=== PATIENT | female | born 1935 | race Caucasian/White ===

== ENCOUNTER 2019-08-09 15:36 | Inpatient (IN) | payer MEDICARE, BC ==
[~2019-08-09] VITALS: Ht 157.5 cm; Wt 59.9 kg
[2019-08-09] MEDS ORDERED: VENL150C58 PO (15:56)
[2019-08-09] MEDS ORDERED: OLAN5TAB3 PO (15:56)
[2019-08-09] MEDS ORDERED: ROSU5TAB13 PO (15:56)
[2019-08-09] MEDS ORDERED: MIRT15TA7 PO (15:56)
[2019-08-09] MEDS ORDERED: TEMA15CA PO (15:56)
[2019-08-09 16:00] VITALS: BP 147/93
[2019-08-09] MEDS ORDERED: LORAZEPAM 0.5 MG TABLET PO PRN (17:00)
[2019-08-09] MEDS ORDERED: MAGNESIUM HYDROXIDE 30 ML UDC PO PRN (17:00)
[2019-08-09] MEDS ORDERED: ACETAMINOPHEN 325 MG TABLET PO PRN (17:00)
[2019-08-09] MEDS ORDERED: MAG HYDROX/AL HYDROX/SIMETH 30 ML UDC PO PRN (17:00)
[2019-08-09] MEDS ORDERED: BLOOD SUGAR DIAGNOSTIC 1 EACH STRIP IN ONE (17:00)
--- NOTE | 2019-08-09 18:14 | NUR ---
GPS/RN-NOTES ADMITTED 83 YEARS OLD FEMALE PATIENT FROM [facility] ER. PATIENT ON VOLUNTARY. UPON FACE TO FACE ASSESSMENT, PATIENT A/O X4 AMBULATORY STEADY GAIT. PATIENT DENIES SI/HI AT THIS TIME. PATIENT STATED" I HAVE PANIC DISORDER,ANXIETY ATTACK ". PATIENT SIGNS ALL ADMISSION PAPERS, CONTRABAND AND FULL BODY ASSESSMENT DONE. PATIENT'S RIGHT BOOKLET WAS GIVEN TO THE PATIENT. PATIENT WAS ORIENTED IN THE UNIT AND UNIT POLICIES. PATIENT SON LALI COLLAZO MADE AWARE OF THE ADMISSION. DR. HURLEY MADE AWARE WITH ORDERS. ALSO COLLECTION ANALYST OCHOA FLANNERY SEEN THE PATIENT AND RECONCILED PT'S MEDICATIONS. PATIENT OWN CELLPHONE INCLUDING EXTERMINATION SUPERVISOR WAS KEPT IN THE NURSE STATION PER PATIENT'S REQUEST,CHARGE NURSE JUAN ANTONIO AWARE AND AGREED. WILL ENDORSE TO INCOMING SHIFT FOR CONTINUITY OF CARE.
[2019-08-09 20:00] VITALS: BP 149/86
[2019-08-09 21:05] VITALS: BP 149/86
[2019-08-09] MEDS: ATORVASTATIN 10 MG TABLET PO SCH (21:29)
[2019-08-09] MEDS: TEMAZEPAM 7.5 MG CAPSULE PO PRN (21:50)
--- NOTE | 2019-08-09 21:50 | NUR ---
GPS RN notes Pt is complaining of having problem with sleeping and requesting sleeping meds. Administered restoril 7.5 mg/po as ordered for sleeping. Safety precautions is maintained. Will continue to monitor.
--- NOTE | 2019-08-10 01:57 | NUR ---
GPS RN notes Pt is complaining of pain on R and L legs and requesting pain meds. Administered tylenol 325mg/2 tabs/po as ordered for pain. Safety precautions is maintained. Will continue to monitor.
--- NOTE | 2019-08-10 05:20 | NUR ---
GPS RN notes: Pt keep asking about her psych meds. Explained to Pt several times that MD will evaluate today. Pt repeatedly asked the same questions over and over again. Pt easily forgetful. Reality orientation provided. Noted in this conversation with Pt that she asked for the same psych meds including the ativan , however she also believes that it is not helping her much. nurse assigned and charge nurse offered her ativan, but patient refused to take the said medication. nurse assigned spent considerable amount to time explaining these matter to her but patient goes back to the topic again and again. Will continue to monitor this behavior.
[2019-08-10 06:47] LABS: ALBUMIN 3.5 g/dL (3.4-5.0); BILIRUBIN,TOTAL 0.8 mg/dL (0.2-1.0); CALCIUM, SERUM 8.6 mg/dL (8.5-10.1); POTASSIUM 3.9 mmol/L (3.5-5.1); TOTAL PROTEIN, SERUM 6.3 g/dL (6.4-8.2)
[2019-08-10 08:00] VITALS: BP 143/83
[2019-08-10 16:00] VITALS: BP 132/65
[2019-08-10] MEDS: VENLAFAXINE XR 150 MG CAP.SR.24H PO SCH (16:43)
[2019-08-10 20:00] VITALS: BP 112/73
[2019-08-10 20:37] VITALS: BP 112/73
[2019-08-10] MEDS: ATORVASTATIN 10 MG TABLET PO SCH (21:57)
[2019-08-10] MEDS: MIRTAZAPINE 15 MG TABLET PO SCH (21:57)
[2019-08-10] MEDS: OLANZAPINE 2.5 MG TABLET PO SCH (21:57)
[2019-08-10] MEDS: TEMAZEPAM 7.5 MG CAPSULE PO PRN (22:03)
--- NOTE | 2019-08-10 22:03 | NUR ---
GPS RN NOTES C/O INSOMNIA,MEDICATED WITH RESTORIL 7.5MG PO ORDERED.WILL MONITOR HOUR OF SLEEP.
[2019-08-11 08:00] VITALS: BP 132/92
[2019-08-11] MEDS: VENLAFAXINE XR 150 MG CAP.SR.24H PO SCH (08:05)
[2019-08-11 15:59] VITALS: BP 134/84
[2019-08-11 19:43] VITALS: BP 140/79
[2019-08-11 20:00] VITALS: BP 140/79
--- NOTE | 2019-08-11 21:35 | NUR ---
GPS RN NOTE: PATIENT REFUSED SKIN ASSESSMENT, STATED," MY SKIN IS GOOD, YOU DON'T HAVE TO CHECK, YOU CAN TRUST ME & IF I DON'T SLEEP NOW, I WON'T BE ABLE TO SLEEP."
[2019-08-11] MEDS: ATORVASTATIN 10 MG TABLET PO SCH (21:45)
[2019-08-11] MEDS: MIRTAZAPINE 15 MG TABLET PO SCH (21:45)
[2019-08-11] MEDS: OLANZAPINE 2.5 MG TABLET PO SCH (21:45)
[2019-08-11] MEDS: TEMAZEPAM 7.5 MG CAPSULE PO PRN (22:24)
--- NOTE | 2019-08-11 22:26 | NUR ---
GPS RN NOTE: INSOMNIA PATIENT STATED SHE IS UNABLE TO SLEEP & WANTED TO TAKE HER RESTORIL RIGHT NOW, EXPLAINED HER TO SPACE OUT HER 2200 MEDS BUT PATIENT KEPT INSISTING TO TAKE IT RIGHT NOW & STARTED GETTING RESTLESS/ANXIOUS. VITALS ARE STABLE, NO ACUTE CHANGES NOTED. PRN RESTORIL 7.5 MG 1 CAP PO GIVEN ORDERED. WILL CONTINUE TO MONITOR.
[2019-08-12] MEDS: clonazePAM 0.5 MG TABLET PO PRN (03:56)
--- NOTE | 2019-08-12 03:56 | NUR ---
GPS RN NOTE: ANXIETY/RESTLESSNESS PATIENT NOTED TO BE VERY ANXIOUS, RESTLESS, KEEP SAYING, HONEY I AM MESS, MY LIFE IS A MESS." PRN KLONOPIN 0.5 MG PO GIVEN ORDERED. WILL CONTINUE TO MONITOR THE PATIENT CLOSELY FOR ANY CHANGES.
--- NOTE | 2019-08-12 06:26 | NUR ---
GPS RN NOTE PATIENT IS SLEEPING COMFORTABLY AT THIS TIME. WILL CONTINUE TO MONITOR.
[2019-08-12 08:00] VITALS: BP 150/91
[2019-08-12] MEDS: VENLAFAXINE XR 150 MG CAP.SR.24H PO SCH (09:12)
--- NOTE | 2019-08-12 13:30 | NUR ---
Initial Discharge Plan: Pt currently resides at her home located at [address] [place] [address], [address], [place] [address]; ([phone]). Per pt, she would like to return to her home. JACKLYN will work with the pt and the MD regarding appropriate discharge planning. SW will form a safe and proper plan.
[2019-08-12 16:00] VITALS: BP 126/76
--- NOTE | 2019-08-12 16:15 | NUR ---
Group Note: SW encouraged the pt to participate in group therapy on 08/12/19, however, pt is not appropriate at this time. Pt is easily agitated, paranoid and anxious. Pt stated that she wanted to return to her home and leave the hospital now as she is a voluntary pt. SW informed her that she came to the unit since she needed help and therefore she should not be discharged this soon. SW stated that she has a right but nothing has changed before she was admitted. Pt stated that made sense and that will try to stay longer.
[2019-08-12 20:17] VITALS: BP 136/76
[2019-08-12] MEDS: OLANZAPINE 2.5 MG TABLET PO SCH (21:21)
[2019-08-12] MEDS: MIRTAZAPINE 15 MG TABLET PO SCH (21:21)
[2019-08-12] MEDS: ATORVASTATIN 10 MG TABLET PO SCH (21:21)
[2019-08-12] MEDS: TEMAZEPAM 7.5 MG CAPSULE PO PRN (23:08)
--- NOTE | 2019-08-12 23:10 | NUR ---
GPS RN NOTES: INSOMNIA PT REQUESTED SLEEPING MEDS. OFFERED RESTORIL 7.5 MG PO PRN ORDERED. PT AGREED AND TOLERATED MEDS WELL. CONTINUE TO MONITOR
[2019-08-13 08:00] VITALS: BP 128/85
[2019-08-13] MEDS: VENLAFAXINE XR 150 MG CAP.SR.24H PO SCH (08:31)
[2019-08-13 16:00] VITALS: BP 127/74
--- NOTE | 2019-08-13 19:43 | NUR ---
MS RN NOTES PATIENT AWAKE, WALKING HALLWAYS. ALERT AND ORIENTED X 3. SHOWS NO SIGNS OF ACUTE DISTRESS. ANXIOUS, NEEDY, AND CONFUSED AT TIMES. PATIENT IS AMBULATORY AND STABLE. BED IN LOWEST POSITION, LOCKED, AND SAFETY PRECAUTIONS IN PLACE. WILL CONTINUE TO MONITOR.
[2019-08-13 20:54] VITALS: BP 128/85
[2019-08-13] MEDS: MIRTAZAPINE 15 MG TABLET PO SCH (21:27)
[2019-08-13] MEDS: OLANZAPINE 2.5 MG TABLET PO SCH (21:27)
[2019-08-13] MEDS: ATORVASTATIN 10 MG TABLET PO SCH (21:27)
[2019-08-13] MEDS: TEMAZEPAM 7.5 MG CAPSULE PO PRN (22:37)
--- NOTE | 2019-08-13 23:08 | NUR ---
REMBERTO NOTES PATIENT REQUESTED SLEEPING MEDICATIONS. GIVEN PRN RESTORIL AT 2337 Addendum: 08/13/19 at 2309 by EMILE ROSALES RN WRONG TIMES
--- NOTE | 2019-08-13 23:09 | NUR ---
RN NOTES PATIENT REQUESTED SLEEPING MEDICATIONS. GIVEN PRN RESTORIL AT 1603
[2019-08-14 08:00] VITALS: BP 161/87
[2019-08-14] MEDS: VENLAFAXINE XR 150 MG CAP.SR.24H PO SCH (08:58)
--- NOTE | 2019-08-14 11:26 | NUR ---
RN-CO: NOTIFIED DR NAVARRO REGARDING FOUL SMELLING URINE OF THE PATIENT. AWAITING FOR ORDERS.
[2019-08-14] MEDS: VENLAFAXINE XR 75 MG CAP.SR.24H PO SCH (12:19)
[2019-08-14] MEDS: POLYETHYLENE GLYCOL 3350 17 GM POWD.PACK PO SCH ×2 (12:19→22:13)
--- NOTE | 2019-08-14 14:22 | NUR ---
Group Note: SW encouraged the pt to participate in group therapy on 08/14/19, however, pt is not appropriate at this time. Pt is easily agitated, paranoid and anxious. Pt stated that she wanted to return to her home and leave the hospital now as she is a voluntary pt. SW informed her that she came to the unit since she needed help and therefore she should not be discharged this soon. SW stated that she has a right but nothing has changed before she was admitted. Pt stated that made sense and that will try to stay longer.
[2019-08-14 16:00] VITALS: BP 102/83
[2019-08-14 20:07] VITALS: BP 133/70
[2019-08-14] MEDS: ATORVASTATIN 10 MG TABLET PO SCH (22:13)
[2019-08-14] MEDS: OLANZAPINE 2.5 MG TABLET PO SCH (22:13)
[2019-08-14] MEDS: MIRTAZAPINE 15 MG TABLET PO SCH (22:13)
[2019-08-14] MEDS: TEMAZEPAM 7.5 MG CAPSULE PO PRN (23:25)
--- NOTE | 2019-08-14 23:25 | NUR ---
GPS RN NOTE: INSOMNIA PT. C/O UNABLE TO SLEEP. ADMINISTERED RESTORIL 7.5 MG PO PRN ORDERED. WILL CONTINUE TO MONITOR FOR SAFETY AND BEHAVIOR
[2019-08-15 08:00] VITALS: BP 139/86
[2019-08-15] MEDS: VENLAFAXINE XR 150 MG CAP.SR.24H PO SCH (08:34)
[2019-08-15] MEDS: VENLAFAXINE XR 75 MG CAP.SR.24H PO SCH (12:42)
--- NOTE | 2019-08-15 14:11 | NUR ---
Group Note: SW encouraged the pt to participate in group therapy on 08/15/19, however, pt is not appropriate at this time. Pt is easily agitated, paranoid and anxious. Pt stated that she wanted to return to her home and leave the hospital now as she is a voluntary pt. SW informed her that she came to the unit since she needed help and therefore she should not be discharged this soon. SW stated that she has a right but nothing has changed before she was admitted. Pt stated that made sense and that will try to stay longer.
[2019-08-15 16:00] VITALS: BP 138/92
[2019-08-15] MEDS ORDERED: busPIRone 5 MG TABLET PO SCH (17:00)
[2019-08-15] MEDS: busPIRone 5 MG TABLET PO SCH (18:00)
[2019-08-15 20:00] VITALS: BP 118/71
[2019-08-15 20:51] VITALS: BP 118/71
[2019-08-15] MEDS: ATORVASTATIN 10 MG TABLET PO SCH (22:04)
[2019-08-15] MEDS: POLYETHYLENE GLYCOL 3350 17 GM POWD.PACK PO SCH (22:04)
[2019-08-15] MEDS: MIRTAZAPINE 15 MG TABLET PO SCH (22:04)
[2019-08-15] MEDS: OLANZAPINE 2.5 MG TABLET PO SCH (22:05)
[2019-08-15] MEDS: TEMAZEPAM 7.5 MG CAPSULE PO PRN (23:04)
--- NOTE | 2019-08-15 23:05 | NUR ---
rn gps notes patient requested for restoril to help for sleeping, prn given will continue to monitor.
[2019-08-16 06:07] VITALS: BP 118/71
[2019-08-16 08:00] VITALS: BP 143/76
[2019-08-16] MEDS: busPIRone 5 MG TABLET PO SCH ×2 (09:01→16:53)
[2019-08-16] MEDS: VENLAFAXINE XR 75 MG CAP.SR.24H PO SCH ×2 (09:01→16:53)
[2019-08-16 16:00] VITALS: BP 133/76
[2019-08-16 20:00] VITALS: BP 131/75
[2019-08-16] MEDS: ATORVASTATIN 10 MG TABLET PO SCH (21:49)
[2019-08-16] MEDS: OLANZAPINE 2.5 MG TABLET PO SCH (21:50)
[2019-08-16] MEDS: MIRTAZAPINE 15 MG TABLET PO SCH (21:50)
[2019-08-16] MEDS: POLYETHYLENE GLYCOL 3350 17 GM POWD.PACK PO SCH (22:00)
--- NOTE | 2019-08-16 22:01 | NUR ---
GPS RN NOTE: PT REFUSED 2199 FARNAZ, STATES "I JUST HAD A BM, I DON'T NEED IT". WILL CONTINUE TO MONITOR.
[2019-08-16] MEDS: TEMAZEPAM 7.5 MG CAPSULE PO PRN (22:35)
--- NOTE | 2019-08-17 06:40 | NUR ---
GPS RN CLOSING NOTE: PT LAYING IN BED SLEEPING. RESPIRATION EVEN AND UNLABORED WITH EQUAL RISE AND FALL OF THE CHEST ON ROOM AIR. NO S/S OF ANY DISTRESS AT THIS TIME. ENDORSING TO AM SHIFT.
[2019-08-17 08:00] VITALS: BP 145/76
[2019-08-17] MEDS: busPIRone 5 MG TABLET PO SCH ×2 (08:34→16:37)
[2019-08-17] MEDS: VENLAFAXINE XR 75 MG CAP.SR.24H PO SCH ×2 (08:34→16:37)
--- NOTE | 2019-08-17 14:15 | NUR ---
GPS/RN-NOTES PATIENT AWAKE,ALERT LAYING IN BED WITH EPISODE OF PACING VERBALIZING ANXIETY. OFFERED PRN ANXIETY MEDICATIONS BUT PATIENT STRONGLY REFUSED. STATED" I'M FINE I NEED TO TAKE SOME WALKING".PATIENT WAS REEDUCATED WITH SAFETY PRECAUTIONS. PATIENT VERBALIZED UNDERSTANDING. ALL NEEDS ATTENDED AND ANTICIPATED. WILL CONT. MONITORING FOR SAFETY AND BEHAVIOR.
[2019-08-17 16:00] VITALS: BP 110/77
[2019-08-17 20:00] VITALS: BP 129/70
[2019-08-17 20:27] VITALS: BP 141/80
[2019-08-17] MEDS: POLYETHYLENE GLYCOL 3350 17 GM POWD.PACK PO SCH (22:00)
[2019-08-17] MEDS: ATORVASTATIN 10 MG TABLET PO SCH (22:01)
[2019-08-17] MEDS: OLANZAPINE 2.5 MG TABLET PO SCH (22:01)
[2019-08-17] MEDS: MIRTAZAPINE 15 MG TABLET PO SCH (22:01)
--- NOTE | 2019-08-17 22:03 | NUR ---
GPS RN NOTE: REFUSED MIRALAX PATIENT REFUSED TO TAKE MIRALAX, STATED," I HAD BM TODAY & I DON'T NEED THIS MEDICINE.". OFFERED X 3 BUT CONTINUED TO REFUSE.
[2019-08-17] MEDS: TEMAZEPAM 7.5 MG CAPSULE PO PRN (23:22)
--- NOTE | 2019-08-17 23:23 | NUR ---
GPS RN NOTE: INSOMNIA PATIENT VERBALIZED THAT SHE IS UNABLE TO SLEEP & REQUESTED TO TAKE SLEEPING MEDICINE. PRN RESTORIL 7.5 MG 1 CAP PO GIVEN ORDERED. WILL CONTINUE TO MONITOR FOR EFFECTIVENESS.
[2019-08-18 06:38] LABS: BASOPHILS % (AUTO) 0.5 % (0.0-2.0); EOSINOPHILS % (AUTO) 2.5 % (0.0-6.0); HEMATOCRIT 36 % (33-45); LYMPHOCYTES # (AUTO) 1.2 /CMM (0.8-4.8); LYMPHOCYTES % (AUTO) 24.9 % (20.0-44.0); MEAN CORPUSCULAR HGB CONC 33 g/dl (31.0-36.0); MEAN CORPUSCULAR VOLUME 89 fL (82-100); MONOCYTES # (AUTO) 0.5 /CMM (0.1-1.30); MONOCYTES % (AUTO) 9.2 % (2.0-12.0); NEUTROPHILS # (AUTO) 3.1 /CMM (1.8-8.9); NEUTROPHILS % (AUTO) 62.9 % (43.0-81.0); PLATELET COUNT (AUTO) 158 /CMM (150-450); RED BLOOD CELL COUNT(AUTO) 4.03 MIL/uL (4.0-5.2)
[2019-08-18 06:56] LABS: CALCIUM, SERUM 8.8 mg/dL (8.5-10.1); MAGNESIUM 2.4 mg/dL (1.8-2.4); PHOSPHORUS 4.1 mg/dL (2.5-4.9)
[2019-08-18 08:00] VITALS: BP 132/82
[2019-08-18] MEDS: VENLAFAXINE XR 75 MG CAP.SR.24H PO SCH ×2 (08:17→16:51)
[2019-08-18] MEDS: busPIRone 5 MG TABLET PO SCH ×3 (08:17→16:52)
--- NOTE | 2019-08-18 09:00 | NUR ---
RN NOTE- PARANOID HYPERVERBAL REPEATING QUESTIONS REGARDING CARE BLOOD WORK TREATMENT AND DC. MED COMPLIANT, NEEDS ATTENDED DENYING [facility].
[2019-08-18] MEDS: clonazePAM 0.5 MG TABLET PO PRN (14:41)
--- NOTE | 2019-08-18 14:41 | NUR ---
RN NOTE- ANXIETY INCREASING. KLONOPIN 0.5 MG GIVEN
[2019-08-18 16:00] VITALS: BP 130/67
[2019-08-18] MEDS: POLYETHYLENE GLYCOL 3350 17 GM POWD.PACK PO SCH (21:12)
[2019-08-18 21:18] VITALS: BP 133/81
[2019-08-18] MEDS: ATORVASTATIN 10 MG TABLET PO SCH (22:03)
[2019-08-18] MEDS: MIRTAZAPINE 15 MG TABLET PO SCH (22:03)
[2019-08-18] MEDS: OLANZAPINE 2.5 MG TABLET PO SCH (22:03)
[2019-08-18] MEDS: TEMAZEPAM 7.5 MG CAPSULE PO PRN (23:16)
--- NOTE | 2019-08-18 23:19 | NUR ---
GPS RN NOTES: INSOMNIA PT REQUESTED SLEEPING MEDS. OFFERED RESTORIL 7.5 MG PO PRN ORDERED. PT AGREED AND TOLERATED MEDS WELL. CONTINUE TO MONITOR
[2019-08-19 08:00] VITALS: BP 153/84
[2019-08-19] MEDS: VENLAFAXINE XR 75 MG CAP.SR.24H PO SCH ×2 (08:15→17:21)
[2019-08-19] MEDS: busPIRone 5 MG TABLET PO SCH ×3 (08:15→17:21)
--- NOTE | 2019-08-19 10:00 | NUR ---
INDIVIDUAL INTERVENTION: JACKLYN spoke with pt regarding her discharge on Monday08/21/19. Pt became extremely anxious stating that she was not ready to be discharged home and that she continues to feel "fuzzy" from the head. JACKLYN explained that MD has given a discharge order as she no longer meets criteria for acute inpatient hospitalization and can follow up with outside mental health services. JACKLYN informed pt that this freelance copywriter will be following up with pts friend Milagros to coordinate her discharge, pt agreed.
--- NOTE | 2019-08-19 10:23 | NUR ---
FRIEND CONTACT: JACKLYN contacted pts friend Trinity Shea ([phone]) to coordinate pts discharge. Friend states that she will have a caregiver in place for pt by Monday08/21/19. She states a tractor trailer moving van driver will be coming on that day at 12:00pm to pick pt up and transport home.
[2019-08-19 16:00] VITALS: BP 143/93
[2019-08-19 20:13] VITALS: BP 146/88
[2019-08-19] MEDS: POLYETHYLENE GLYCOL 3350 17 GM POWD.PACK PO SCH (22:00)
[2019-08-19] MEDS: OLANZAPINE 2.5 MG TABLET PO SCH (22:01)
[2019-08-19] MEDS: ATORVASTATIN 10 MG TABLET PO SCH (22:01)
[2019-08-19] MEDS: MIRTAZAPINE 15 MG TABLET PO SCH (22:02)
[2019-08-19 22:42] VITALS: BP 143/95
[2019-08-19] MEDS: TEMAZEPAM 7.5 MG CAPSULE PO PRN (23:03)
--- NOTE | 2019-08-19 23:06 | NUR ---
GPS RN NOTES: INSOMNIA PT REQUESTED SLEEPING MEDS. VITALS CHECKED WNL. NO SOB.NO ROSEANN DISTRESS. OFFERED RESTORIL 7.5 MG PO PRN ORDERED. PT AGREED AND TOLERATED MEDS WELL. CONTINUE TO MONITOR
[2019-08-20 08:00] VITALS: BP 142/72
[2019-08-20] MEDS: busPIRone 5 MG TABLET PO SCH ×3 (08:46→16:27)
[2019-08-20] MEDS: VENLAFAXINE XR 75 MG CAP.SR.24H PO SCH ×2 (08:46→16:27)
--- NOTE | 2019-08-20 12:54 | NUR ---
PSYCH ELLI: JACKLYN contacted psychiatrist Dr. Palmer Rodriguez Address: [address] [place] [address] [address], [place] [address] to schedule a followup appointment for pt. Pts follow up telehealth appointment will be on 08/28/19 at 0930. JACKLYN faxed clinicals to .
--- NOTE | 2019-08-20 14:19 | NUR ---
INDIVIDUAL INTERVENTION: SW encouraged pt to attend group therapy on this present day. Pt stated she is to anxious and her head is not right and cannot gather her thoughts.
[2019-08-20 16:00] VITALS: BP 144/89
[2019-08-20 20:36] VITALS: BP 135/90
[2019-08-20] MEDS: ATORVASTATIN 10 MG TABLET PO SCH (21:03)
[2019-08-20] MEDS: MIRTAZAPINE 15 MG TABLET PO SCH (21:03)
[2019-08-20] MEDS: OLANZAPINE 2.5 MG TABLET PO SCH (21:04)
[2019-08-20] MEDS: POLYETHYLENE GLYCOL 3350 17 GM POWD.PACK PO SCH (22:00)
--- NOTE | 2019-08-20 22:30 | NUR ---
GPS RN NOTE: REFUSED MIRALAX PATIENT REFUSED TO TAKE MIRALAX, STATED, I HAD BM , I DON'T NEED THIS MEDICINE, ENCOURAGED OFFERED X 3 BUT CONTINUED TO REFUSE.
[2019-08-21] MEDS: clonazePAM 0.5 MG TABLET PO PRN (04:08)
--- NOTE | 2019-08-21 04:11 | NUR ---
ANXIETY PT. C/O FEELING ANXIOUS, RESTLESS , KLONOPIN 0.5 MG PO PRN GIVEN PER PT. REQUEST , WILL CONTINUE TO MONITOR.
[2019-08-21 08:00] VITALS: BP 140/79
[2019-08-21] MEDS: VENLAFAXINE XR 75 MG CAP.SR.24H PO SCH (09:31)
[2019-08-21] MEDS: busPIRone 5 MG TABLET PO SCH (09:31)
--- NOTE | 2019-08-21 10:00 | NUR ---
RN-CO: DR HURLEY ORDERED TO DISCHARGE PATIENT HOME , FRIEND MAEGAN JENKINS ( [phone]) WILL PICK HER UP. AT 1200. PATIENT IS ALERT AND ORIENTED X 4, ABLE TO MAKE NEEDS KNOWN, AMBULATORY AND SELF CARE BUT NEEDS MINIMAL ASSITANCE DUE TO HER AGE. SHE DENIES SUICIDAL AND HOMICIDAL IDEATION. SHE DENIED AUDITORY AND VISUAL HALLUCINATIONS. HER PRESCRIPTIONS WERE CALLED TO [facility] BY " SHANE Tsai" HER PRIMARY RN.
--- NOTE | 2019-08-21 11:52 | NUR ---
DISCHARGE NOTE: Pt will be discharged at 12:00pm via private vehicle home [address], [address], [place] [address]. Pts friend Trinity Shea ([phone]) has made transportation arrangements for pt. Pts mood is anxious with congruent affect. Pt denied visual/auditory hallucinations and denied suicidal/homicidal ideation. Pt has a follow up telepsych appointment [facility] Dr. Palmer Rodriguez Address: [address] [place] [address] [address], [place] [address] on 08/28/19 at 0930. Pt will also follow up with Railway Signalling Engineer: Dr. Liliam Gomes Address: [address] [place] [address] . The multidisciplinary exit care form was done, printed, signed, and given to the patient.
--- NOTE | 2019-08-21 12:00 | NUR ---
RN-CO: PRESCRIPTIONS WAS EXPLAINED TO HER WELL THE DISCHARGE PAPER WORKS. SHE VERBALIZED UNDERSTANDING AND SIGNED THE PAPER WORKS. ALL BELONGINGS/VALUABLES WAS GIVEN BACK TO HER.
--- NOTE | 2019-08-21 12:15 | NUR ---
pt. made ready for discharge.belongings to pt. given all paperwork.denies suicidal.homicidal ideation.requests restoril for home,but psychiatrist refused to order.ride here and transported pt. to [facility].
== END 2019-08-21 12:15 | disposition home or self-care (01) | DRG 885 ==
LOC: GPS 15:36
PROVIDERS: ADMIT Psychiatry & Neurology Psychiatry; ATTEND Nurse Practitioner Acute Care
DX: F33.2 Major depressive disorder, recurrent severe without psychotic features (principal); F23 Brief psychotic disorder; F41.9 Anxiety disorder, unspecified; I10 Essential (primary) hypertension; E78.5 Hyperlipidemia, unspecified
CPT/HCPCS: 36415; 80048-TC; 80053-TC; 80061-TC; 83735-TC; 84100-TC; 85025-TC; 87081-TC

== ENCOUNTER 2020-10-17 17:23 | Inpatient (IN) | payer MEDICARE, BC ==
[~2020-10-17] VITALS: Ht 157.5 cm; Wt 55.3 kg
[~2020-10-17 17:23] MED LIST: ROSU5TAB13 PO
[2020-10-18] MEDS ORDERED: ZOLPIDEM TARTRATE 5 MG TABLET PO PRN
[2020-10-18] MEDS ORDERED: BLOOD SUGAR DIAGNOSTIC 1 EACH STRIP IN ONE
[2020-10-18] MEDS ORDERED: MAG HYDROX/AL HYDROX/SIMETH 30 ML UDC PO PRN
[2020-10-18] MEDS ORDERED: LORAZEPAM 0.5 MG TABLET PO PRN
[2020-10-18 01:35] VITALS: BP 151/71
--- NOTE | 2020-10-18 01:36 | NUR ---
GPS BOILER HELPER NOTES: RECEIVED PATIENT FROM [facility]. PATIENT ARRIVED THIS UNIT AT 2330 ON A STRETCHER WITH 2 EMT ESCORT. PATIENT IS ON A 5150 HOLD FOR DTS/GD. HOLD WAS PLACED ON 10/17/20 @ 2330. PER HOLD, PATIENT PRESENTS TO [facility] ER REPORTING SI D/T AGORAPHOBIC PANIC DISORDER. PATIENT ALSO HAS SEVERE ANXIETY WITH PANIC DISORDER, EXTREME ANXIETY TO THE POINT OF DELUSION WITH MEMORY LAPSE, REFUSING TO LEAVE THE HOSPITAL OR BE ADMITTED, AND ADMITS SHE IS NOT SAFE TO LEAVE. UPON FACE TO FACE EVALUATION, PATIENT APPEARS DEPRESSED WITH FLAT AFFECT, ANXIOUS, RESTLESS, NEEDY, ABLE TO FOLLOW REDIRECTION, FORGETFUL. PATIENT [id number]. SKIN ASSESSMENT DONE, PICTURES TAKEN AND PLACED IN PATIENT CHART. PATIENT REFUSED TO SIGN ALL ADMISSION PAPER WORKS. PATIENT DENIES SI AT THIS TIME. PATIENT HAS NO S/S OF DISTRESS AND NO C/O OF PAIN AT THIS TIME. RESPIRATION EVEN AND UNLABORED WITH EQUAL RISE AND FALL OF THE CHEST, ON ROOM AIR WITH SPO2 OF 94%. REFUSED PNEUMONIA VACCINATION. PATIENT ADVISED OF HER HOLD AND PATIENT RIGHT HANDBOOK AND A GUIDE TO PRESCRIPTION MEDICATIONS BOOKLET GIVEN. PATIENT IS UNDER THE PSYCHIATRIC CARE OF DR LOPEZ AND MEDICAL CARE OF DEAN. PATIENT BELONGINGS WERE INVENTORIED AND CHECKED FOR CONTRABAND. ALL PATIENT CARE NEEDS HAVE BEEN MET AT THIS TIME. BED IS IN LOWEST POSITION AND LOCKED WITH SIDE RAILS UP X2. EDUCATION PROVIDED ON THE USE OF CALL ZHU TO ASK FOR ASSISTANCE. CALL ZHU WITHIN REACH. WILL CONTINUE TO MONITOR Q15 FOR SAFETY, MOOD AND BEHAVIOR.
[2020-10-18] MEDS ORDERED: MIRT-121 PO (04:03)
[2020-10-18] MEDS ORDERED: ATOR20TA PO (04:03)
[2020-10-18] MEDS ORDERED: CLON0.5T PO (04:03)
[2020-10-18] MEDS ORDERED: TRAZ-182 PO (04:03)
[2020-10-18] MEDS ORDERED: LOSA25TA3 PO (04:03)
[2020-10-18] MEDS ORDERED: SERT50TA PO (04:03)
--- NOTE | 2020-10-18 04:23 | NUR ---
GPS RN NOTES: LING CALLED TO RECONCILE PATIENT HOME MEDS.
[2020-10-18 08:00] VITALS: BP 146/74
[2020-10-18] MEDS: clonazePAM 0.5 MG TABLET PO PRN ×2 (08:44→15:14)
--- NOTE | 2020-10-18 08:45 | NUR ---
RN-CO: KLNOPIN 0.25 MG PO GIVEN FOR ANXIETY.
[2020-10-18 08:54] LABS: CHOLESTEROL 197 mg/dL (<200); HDL CHOLESTEROL 74 mg/dL (40-60); LDL 104 mg/dL (0-99); TRIGLYCERIDES 85 mg/dL (30-150)
[2020-10-18 08:56] LABS: ALBUMIN 3.4 g/dL (3.4-5.0); BILIRUBIN,TOTAL 0.5 mg/dL (0.2-1.0); CALCIUM, SERUM 8.4 mg/dL (8.5-10.1); CREATININE 0.9 mg/dL (0.6-1.3); POTASSIUM 3.8 mmol/L (3.5-5.1); TOTAL PROTEIN, SERUM 6.1 g/dL (6.4-8.2)
[2020-10-18] MEDS: ESCITALOPRAM OXALATE (10 MG) 10 MG TABLET PO SCH (13:27)
[2020-10-18] MEDS: ARIPIPRAZOLE 2 MG TABLET PO SCH ×2 (13:27→16:47)
--- NOTE | 2020-10-18 15:15 | NUR ---
RN-CO: KLONOPIN 0.25 MG PO GIVEN FOR MODERATE ANXIETY.
[2020-10-18 16:00] VITALS: BP 151/72
[2020-10-18 20:05] VITALS: BP 116/66
[2020-10-18 20:36] VITALS: BP 116/66
[2020-10-18] MEDS: ATORVASTATIN 10 MG TABLET PO SCH (21:41)
[2020-10-18] MEDS ORDERED: MIRTAZAPINE 15 MG TABLET PO SCH (22:00)
[2020-10-18] MEDS: TEMAZEPAM 7.5 MG CAPSULE PO PRN (22:30)
--- NOTE | 2020-10-18 22:31 | NUR ---
RN NOTE: INSOMNIA PATIENT VERBALIZED THAT SHE IS UNABLE TO SLEEP, FEELING RESTLESS & REQUESTED TO TAKE SLEEPING MEDICINE. PRN RESTORIL 7.5 MG 1 CAP PO ADMINISTERED. PATIENT HAD SNACK & TOLERATED WELL. WILL CONTINUE TO MONITOR.
[2020-10-19] MEDS ORDERED: Z GUARD REMEDY 4 OZ OINT TP PRN (00:30)
[2020-10-19] MEDS: clonazePAM 0.5 MG TABLET PO PRN ×2 (05:27→16:08)
--- NOTE | 2020-10-19 05:29 | NUR ---
RN NOTE: ANXIETY PATIENT VERBALIZED ANXIETY, RESTLESSNESS, BEING WORRIED & HAS BEEN OVER THINKING & CAN NOT CONTROL HER THOUGHTS. PATIENT REQUESTED TO TAKE MEDICINE FOR ANXIETY. PRN KLONOPIN 0.25 MG PO ADMINISTERED.
--- NOTE | 2020-10-19 07:30 | NUR ---
PT RECEIVED RESTING COMFORTABLY IN BED. NO S/S OR C/O PAIN OR DISTRESS NOTED. SIDE RAILS UP X2, CALL LIGHT LEFT WITHIN REACH. WILL CONTINUE PLAN OF CARE.
[2020-10-19 08:00] VITALS: BP 153/78
[2020-10-19] MEDS: ESCITALOPRAM OXALATE (10 MG) 10 MG TABLET PO SCH (08:58)
[2020-10-19] MEDS: ARIPIPRAZOLE 2 MG TABLET PO SCH ×2 (08:59→16:08)
[2020-10-19] MEDS: LOSARTAN POTASSIUM 25 MG TABLET PO SCH (08:59)
[2020-10-19] MEDS: Z GUARD REMEDY 2 OZ OINT TP SCH (08:59)
[2020-10-19 16:00] VITALS: BP 124/70
[2020-10-19] MEDS: ACETAMINOPHEN 325 MG TABLET PO PRN (20:02)
--- NOTE | 2020-10-19 20:06 | NUR ---
RN NOTE: PAIN PATIENT C/O BILATERAL LOWER LEG PAIN 04/22 & REQUESTED TO TAKE PAIN MEDICINE. PRN TYLENOL 650 MG PO ADMINISTERED.
[2020-10-19 20:10] VITALS: BP 143/75
[2020-10-19] MEDS: ATORVASTATIN 10 MG TABLET PO SCH (21:29)
[2020-10-19] MEDS: MIRTAZAPINE 15 MG TABLET PO SCH (21:30)
[2020-10-20] MEDS: ACETAMINOPHEN 325 MG TABLET PO PRN ×2 (04:11→20:01)
--- NOTE | 2020-10-20 04:12 | NUR ---
RN NOTE: PAIN PATIENT C/O BILATERAL LOWER LEG PAIN 04/22 & REQUESTED TO TAKE PAIN MEDICINE. PRN TYLENOL 650 MG PO ADMINISTERED. WILL CONTINUE TO MONITOR.
[2020-10-20 08:00] VITALS: BP 143/85
[2020-10-20] MEDS: Z GUARD REMEDY 2 OZ OINT TP SCH (09:41)
[2020-10-20] MEDS: ESCITALOPRAM OXALATE (10 MG) 10 MG TABLET PO SCH (09:44)
[2020-10-20] MEDS: LOSARTAN POTASSIUM 25 MG TABLET PO SCH (09:44)
[2020-10-20] MEDS: ARIPIPRAZOLE 2 MG TABLET PO SCH ×2 (09:45→16:22)
[2020-10-20] MEDS: MAGNESIUM HYDROXIDE 30 ML UDC PO PRN (12:25)
--- NOTE | 2020-10-20 12:25 | NUR ---
RN NOTE: PT STATES FEELING CONSTIPATED. MILK OF MAGNESIA GIVEN. WILL CONTINUE TO MONITOR.
[2020-10-20] MEDS: clonazePAM 0.5 MG TABLET PO PRN (13:00)
--- NOTE | 2020-10-20 13:01 | NUR ---
RN NOTE: ANXIETY PATIENT VERBALIZED ANXIETY, RESTLESSNESS. PATIENT REQUESTED TO TAKE MEDICINE FOR ANXIETY. PRN KLONOPIN 0.5 MG PO ADMINISTERED. WILL CONTINUE TO MONITOR.
[2020-10-20 16:00] VITALS: BP 141/86
[2020-10-20 20:00] VITALS: BP 129/78
--- NOTE | 2020-10-20 20:05 | NUR ---
RN NOTE: PAIN PATIENT C/O BILATERAL LOWER LEG PAIN 04/22 & REQUESTED TO TAKE PAIN MEDICINE. PRN TYLENOL 650 MG PO ADMINISTERED. WILL CONTINUE TO MONITOR.
[2020-10-20 20:33] VITALS: BP 129/78
[2020-10-20] MEDS: ATORVASTATIN 10 MG TABLET PO SCH (21:39)
[2020-10-20] MEDS: MIRTAZAPINE 15 MG TABLET PO SCH (21:39)
[2020-10-20] MEDS: TRAZODONE 50 MG TABLET PO SCH (21:58)
[2020-10-21 08:00] VITALS: BP 140/75
[2020-10-21] MEDS: Z GUARD REMEDY 2 OZ OINT TP SCH (08:08)
[2020-10-21] MEDS: ARIPIPRAZOLE 2 MG TABLET PO SCH ×2 (08:15→17:19)
[2020-10-21] MEDS: ESCITALOPRAM OXALATE (10 MG) 10 MG TABLET PO SCH (08:15)
[2020-10-21] MEDS: LOSARTAN POTASSIUM 25 MG TABLET PO SCH (08:15)
[2020-10-21] MEDS: clonazePAM 0.5 MG TABLET PO PRN ×2 (10:10→22:03)
--- NOTE | 2020-10-21 10:11 | NUR ---
RN NOTE: ANXIETY PATIENT VERBALIZED ANXIETY, PATIENT REQUESTED TO TAKE MEDICINE FOR ANXIETY. PRN KLONOPIN 0.25 MG PO ADMINISTERED. WILL CONTINUE TO MONITOR.
[2020-10-21 16:00] VITALS: BP 123/75
--- NOTE | 2020-10-21 16:19 | NUR ---
Initial Discharge Plan: The pt. currently resides in a trailer home located at [[address] [place] [address]; [phone]] with caregiver 4x/week. Pt. is requesting SNF placement. Noted. JACKLYN will collaborate with psychiatrist & Pt.'s daughter, Arianna [phone] to plan safe & proper discharge.
--- NOTE | 2020-10-21 16:20 | NUR ---
Point of Contact: JACKLYN called the pt.'s daughter, Arianna [phone] to gather collateral information. However, call went to voicemail and JACKLYN left call back number.
[2020-10-21] MEDS: ACETAMINOPHEN 325 MG TABLET PO PRN (18:19)
--- NOTE | 2020-10-21 18:20 | NUR ---
RN NOTE: PAIN PATIENT C/O BILATERAL LOWER LEG PAIN 04/22 & REQUESTED TO TAKE PAIN MEDICINE. PRN TYLENOL 650 MG PO ADMINISTERED. WILL CONTINUE TO MONITOR.
[2020-10-21 20:00] VITALS: BP 111/63
[2020-10-21] MEDS: MIRTAZAPINE 15 MG TABLET PO SCH (21:39)
[2020-10-21] MEDS: ATORVASTATIN 10 MG TABLET PO SCH (21:39)
[2020-10-21] MEDS: TRAZODONE 50 MG TABLET PO SCH (21:40)
--- NOTE | 2020-10-21 22:00 | NUR ---
RN NOTE : ANXIETY PT IS BECOME ANXIOUS, KEPT ON PACING IN [address]. [id number] PO GIVEN ORDERED. CONTINUE TO MONITOR HER.
[2020-10-21] MEDS: TEMAZEPAM 7.5 MG CAPSULE PO PRN (22:16)
--- NOTE | 2020-10-21 22:20 | NUR ---
RN NOTE : INSOMNIA PT C/O INSOMNIA ASKING FOR SLEEPING MED RESTORIL 7.5 MG PO GIVEN FOR SLEEP. CONTINUE TO MONITOR HER.
--- NOTE | 2020-10-21 23:30 | NUR ---
RN NOTE PT ANXIETY SUBSIDED ALSO PT FALL ASLEEP. NO DISTRESS NOTED.
[2020-10-22 08:00] VITALS: BP 128/77
[2020-10-22] MEDS: Z GUARD REMEDY 2 OZ OINT TP SCH (08:19)
[2020-10-22] MEDS: ARIPIPRAZOLE 2 MG TABLET PO SCH ×2 (08:23→16:38)
[2020-10-22] MEDS: LOSARTAN POTASSIUM 25 MG TABLET PO SCH (08:23)
[2020-10-22] MEDS: ESCITALOPRAM OXALATE (10 MG) 10 MG TABLET PO SCH (08:26)
[2020-10-22] MEDS: MAGNESIUM HYDROXIDE 30 ML UDC PO PRN (09:49)
--- NOTE | 2020-10-22 09:50 | NUR ---
RN NOTE: PT STATES FEELING CONSTIPATED. MILK OF MAGNESIA GIVEN. WILL CONTINUE TO MONITOR.
[2020-10-22 16:00] VITALS: BP 126/64
[2020-10-22 21:09] VITALS: BP 119/72
[2020-10-22] MEDS: MIRTAZAPINE 15 MG TABLET PO SCH (21:40)
[2020-10-22] MEDS: TRAZODONE 50 MG TABLET PO SCH (21:40)
[2020-10-22] MEDS: ATORVASTATIN 10 MG TABLET PO SCH (21:40)
[2020-10-23 08:00] VITALS: BP 140/78
[2020-10-23] MEDS: ARIPIPRAZOLE 2 MG TABLET PO SCH ×3 (08:38→17:04)
[2020-10-23] MEDS: LOSARTAN POTASSIUM 25 MG TABLET PO SCH ×2 (08:39→08:58)
[2020-10-23] MEDS: MAGNESIUM HYDROXIDE 30 ML UDC PO PRN ×2 (08:39→08:56)
[2020-10-23] MEDS: ESCITALOPRAM OXALATE (10 MG) 10 MG TABLET PO SCH ×2 (08:39→08:58)
[2020-10-23] MEDS: Z GUARD REMEDY 2 OZ OINT TP SCH ×2 (08:42→09:28)
--- NOTE | 2020-10-23 10:35 | NUR ---
Individual Intervention: SW met with pt. bedside as pt. requested multiple time this morning to speak to SW about her discharge plan. The pt. presents very anxious and perseverating on discharge to SNF or [facility]. SW informed pt. that SS will work on placement for her to go to a SNF or [facility]. SW informed pt. that psychiatrist will notify SW when pt. is ready for discharge and SW be in communication with pt. about this. Patient expressed understanding. SW educated pt. about breathing exercises and pt. stated she does practice breathing skills. Pt. stated she will practice this and lay down to be able to relax her mind. Noted. SW will be available as needed.
[2020-10-23] MEDS: ACETAMINOPHEN 325 MG TABLET PO PRN ×2 (11:46→22:15)
[2020-10-23] MEDS: clonazePAM 0.5 MG TABLET PO PRN ×2 (13:19→23:03)
--- NOTE | 2020-10-23 14:17 | NUR ---
Probable Cause Hearing: Pt's 5250 hold upheld on the grounds of grave disability.
[2020-10-23 16:00] VITALS: BP_SYST 107; BP_SYST 109; BP_DIAS 62; BP_DIAS 72
--- NOTE | 2020-10-23 21:01 | NUR ---
RN NOTES: AT 2100 BAO TOOK OUT REMERON 45 MG , BY ACCIDENTALLY TOUCH THE SCREEN, MEDICATION NOT REMOVED FOR THIS PATIENT , MEDS STILL IN THE OMNICELL.
[2020-10-23 21:09] VITALS: BP 118/72
[2020-10-23] MEDS: TRAZODONE 50 MG TABLET PO SCH (21:17)
[2020-10-23] MEDS: ATORVASTATIN 10 MG TABLET PO SCH (21:17)
[2020-10-23] MEDS ORDERED: MIRTAZAPINE 15 MG TABLET ONE (22:02)
--- NOTE | 2020-10-23 22:15 | NUR ---
RN PAIN PT C/O BILATERAL LOWER LEG PAIN, RATED 3/10 ON PAIN SCALE. PER PT REQUEST, ADMINISTERED TYLENOL 650MG PO Q6H PRN FOR PAIN. WILL CONTINUE TO MONITOR PT.
[2020-10-23] MEDS: MIRTAZAPINE 15 MG TABLET PO SCH (22:30)
--- NOTE | 2020-10-23 23:03 | NUR ---
RN NOTE: ANXIETY PT VERBALIZED ANXIETY, RESTLESSNESS, AND DIFFICULTY SLEEPING. PT STATED THAT SHE DID NOT WANT TO TAKE RESTORIL AT THIS TIME. PER PT REQUEST, ADMINISTERED KLONOPIN 0.5MG PO Q4H PRN. WILL CONTINUE TO MONITOR PT.
[2020-10-24 08:00] VITALS: BP 133/82
[2020-10-24] MEDS: ESCITALOPRAM OXALATE (10 MG) 10 MG TABLET PO SCH (10:14)
[2020-10-24] MEDS: LOSARTAN POTASSIUM 25 MG TABLET PO SCH (10:14)
[2020-10-24] MEDS: ARIPIPRAZOLE 2 MG TABLET PO SCH ×2 (10:15→17:09)
[2020-10-24] MEDS: Z GUARD REMEDY 2 OZ OINT TP SCH (11:30)
[2020-10-24] MEDS: clonazePAM 0.5 MG TABLET PO PRN (13:18)
--- NOTE | 2020-10-24 13:18 | NUR ---
GIVEN CLONOPIN FOR NERVES.
[2020-10-24 16:00] VITALS: BP 138/81
--- NOTE | 2020-10-24 17:50 | NUR ---
dtr. mariela called twice,and message left,no return call,pt. teary eyed and states",my dtr. is mad at me."
--- NOTE | 2020-10-24 18:14 | NUR ---
pt. verbalized concern over not hearing from dtr.
[2020-10-24 20:50] VITALS: BP 117/58
[2020-10-24] MEDS: ATORVASTATIN 10 MG TABLET PO SCH (21:53)
[2020-10-24] MEDS: TRAZODONE 50 MG TABLET PO SCH (21:53)
[2020-10-24] MEDS: MIRTAZAPINE 15 MG TABLET PO SCH (21:54)
[2020-10-24] MEDS: TEMAZEPAM 7.5 MG CAPSULE PO PRN ×2 (22:10→22:17)
--- NOTE | 2020-10-24 22:17 | NUR ---
PT C/O INABILITY TO SLEEP PER PT REQUEST RESTORIL 7.5 MG PO PRN FOR SLEEP NON ADMINISTERED. PT CHANGED HER MIND. WILL CONTINUE TO MONITOR.
--- NOTE | 2020-10-24 22:54 | NUR ---
MISTAKENLY DOCUMENTED ON SHANE'S ACCOUNT THE PREVIOUS MORNING RN.
[2020-10-25] MEDS: TEMAZEPAM 7.5 MG CAPSULE PO PRN ×2 (00:19→02:58)
[2020-10-25 08:00] VITALS: BP 143/79
[2020-10-25] MEDS: clonazePAM 0.5 MG TABLET PO PRN ×2 (08:37→14:43)
[2020-10-25] MEDS: ARIPIPRAZOLE 2 MG TABLET PO SCH ×2 (08:37→17:00)
[2020-10-25] MEDS: ESCITALOPRAM OXALATE (10 MG) 10 MG TABLET PO SCH (08:37)
[2020-10-25] MEDS: LOSARTAN POTASSIUM 25 MG TABLET PO SCH (08:38)
[2020-10-25] MEDS: Z GUARD REMEDY 2 OZ OINT TP SCH (08:54)
[2020-10-25] MEDS: MAGNESIUM HYDROXIDE 30 ML UDC PO PRN (11:28)
--- NOTE | 2020-10-25 11:29 | NUR ---
RANDCO: MOM GIVEN FOR C/O CONSTIPATION.
--- NOTE | 2020-10-25 14:44 | NUR ---
RN-CO: CLONOPIN 0.5 MG PO GIVEN FOR ANXIETY.
[2020-10-25 16:00] VITALS: BP 138/75
--- NOTE | 2020-10-25 16:32 | NUR ---
RN-CO: BLOOD SUGAR 239. Addendum: 10/25/20 at 1717 by CATY LANDIS RN RNLeaCO: WRONG CHARTING, NOT MEANT FOR THIS PATIENT.
[2020-10-25] MEDS: ACETAMINOPHEN 325 MG TABLET PO PRN (18:31)
--- NOTE | 2020-10-25 18:37 | NUR ---
RN-CO: TYLENOL 650 MG PO GIVEN FOR ARMS AND LEGS PAIN 04/22.
[2020-10-25 20:00] VITALS: BP 104/53
[2020-10-25 20:50] VITALS: BP 104/53
[2020-10-25] MEDS: ATORVASTATIN 10 MG TABLET PO SCH (21:40)
[2020-10-25] MEDS: MIRTAZAPINE 15 MG TABLET PO SCH (21:40)
[2020-10-25] MEDS: TRAZODONE 50 MG TABLET PO SCH (21:42)
[2020-10-26 08:00] VITALS: BP 127/72
[2020-10-26] MEDS: Z GUARD REMEDY 2 OZ OINT TP SCH (08:22)
[2020-10-26] MEDS: ESCITALOPRAM OXALATE (10 MG) 10 MG TABLET PO SCH (08:23)
[2020-10-26] MEDS: ARIPIPRAZOLE 2 MG TABLET PO SCH ×2 (08:23→16:02)
[2020-10-26] MEDS: LOSARTAN POTASSIUM 25 MG TABLET PO SCH (08:24)
[2020-10-26] MEDS: ACETAMINOPHEN 325 MG TABLET PO PRN (10:41)
--- NOTE | 2020-10-26 12:03 | NUR ---
ILF Referral: Per pt.'s request JACKLYN faxed clinicals to [facility] TEL: [phone] FAX: [phone].JACKLYN also left voicemail to Director, Rebeca Diez to gather cost and other information. JACKLYN will follow up as needed.
--- NOTE | 2020-10-26 12:07 | NUR ---
ILF Update: SW received call back from [facility] stating that they feel the pt. needs a higher level of care. SW will notify the patient.
--- NOTE | 2020-10-26 12:18 | NUR ---
SNF Referral: JACKLYN faxed clinicals to [facility] FAX:[phone]
--- NOTE | 2020-10-26 13:56 | NUR ---
SNF Referral: SW received notice from [facility] FAX:[phone] that pt. is not accepted.
[2020-10-26 16:00] VITALS: BP 120/68
[2020-10-26] MEDS: clonazePAM 0.5 MG TABLET PO PRN ×2 (16:02→21:54)
[2020-10-26 20:00] VITALS: BP 123/63
[2020-10-26] MEDS: ATORVASTATIN 10 MG TABLET PO SCH (21:54)
[2020-10-26] MEDS: TRAZODONE 50 MG TABLET PO SCH (21:55)
[2020-10-26] MEDS: MIRTAZAPINE 15 MG TABLET PO SCH (21:57)
[2020-10-26] MEDS: TEMAZEPAM 7.5 MG CAPSULE PO PRN (22:14)
[2020-10-27 08:00] VITALS: BP 130/70
[2020-10-27] MEDS: LOSARTAN POTASSIUM 25 MG TABLET PO SCH (09:46)
[2020-10-27] MEDS: ESCITALOPRAM OXALATE (10 MG) 10 MG TABLET PO SCH (09:46)
[2020-10-27] MEDS: ARIPIPRAZOLE 2 MG TABLET PO SCH ×2 (09:47→17:56)
--- NOTE | 2020-10-27 10:12 | NUR ---
SNF Referral SW faxed clinicals to [facility], , for review.
[2020-10-27] MEDS: Z GUARD REMEDY 2 OZ OINT TP SCH (10:42)
[2020-10-27] MEDS: ACETAMINOPHEN 325 MG TABLET PO PRN (12:45)
--- NOTE | 2020-10-27 13:10 | NUR ---
given tylenol 650 mg po for valdemar. arm and leg pain.
[2020-10-27] MEDS: clonazePAM 0.5 MG TABLET PO PRN (14:44)
--- NOTE | 2020-10-27 14:47 | NUR ---
given clonopin for panic attack.
[2020-10-27 16:00] VITALS: BP 141/74
[2020-10-27 20:00] VITALS: BP 113/58
[2020-10-27] MEDS: ATORVASTATIN 10 MG TABLET PO SCH (21:30)
[2020-10-27] MEDS: TRAZODONE 50 MG TABLET PO SCH (21:30)
[2020-10-27] MEDS: MIRTAZAPINE 15 MG TABLET PO SCH (21:31)
[2020-10-28] MEDS: TEMAZEPAM 7.5 MG CAPSULE PO PRN ×2 (00:50→22:30)
[2020-10-28] MEDS: ACETAMINOPHEN 325 MG TABLET PO PRN (00:50)
--- NOTE | 2020-10-28 00:55 | NUR ---
Pt c/o valdemar leg pain 04/22. Tylenol 650 mg 2 tabs po given prn. Pt c/o insomnia. Least restrictive measures ineffective. Restoril 7.5 mg 1 cap po prn given as ordered. Will continue to monitor.
[2020-10-28 07:48] LABS: CALCIUM, SERUM 8.8 mg/dL (8.5-10.1); CREATININE 1.2 mg/dL (0.6-1.3)
[2020-10-28 08:00] VITALS: BP 124/76
--- NOTE | 2020-10-28 08:54 | NUR ---
SNF Update [facility] that the pt has been accepted.
[2020-10-28] MEDS: LOSARTAN POTASSIUM 25 MG TABLET PO SCH (09:56)
[2020-10-28] MEDS: ESCITALOPRAM OXALATE (10 MG) 10 MG TABLET PO SCH (09:56)
[2020-10-28] MEDS: Z GUARD REMEDY 2 OZ OINT TP SCH (09:57)
[2020-10-28] MEDS: ARIPIPRAZOLE 2 MG TABLET PO SCH ×2 (09:57→17:51)
[2020-10-28] MEDS: clonazePAM 0.5 MG TABLET PO PRN (13:19)
[2020-10-28 16:00] VITALS: BP 132/69
[2020-10-28 20:46] VITALS: BP 130/59
[2020-10-28] MEDS: ATORVASTATIN 10 MG TABLET PO SCH (21:35)
[2020-10-28] MEDS: TRAZODONE 50 MG TABLET PO SCH (21:35)
[2020-10-28] MEDS: MIRTAZAPINE 15 MG TABLET PO SCH (21:36)
--- NOTE | 2020-10-28 22:34 | NUR ---
PRN Restoril 7.5 mg given via PO as per patient's request, complaining of insomnia. Safe and quiet environment provided. Will closely monitor.
--- NOTE | 2020-10-28 23:30 | NUR ---
Patient in bed, sleeping comfortably. Insomnia corrected, Restoril effective. Continue to provide safe and quiet environment.
[2020-10-29] MEDS: MAGNESIUM HYDROXIDE 30 ML UDC PO PRN (07:00)
[2020-10-29 08:00] VITALS: BP 143/82
[2020-10-29] MEDS: ARIPIPRAZOLE 2 MG TABLET PO SCH ×2 (08:24→16:40)
[2020-10-29] MEDS: LOSARTAN POTASSIUM 25 MG TABLET PO SCH (08:24)
[2020-10-29] MEDS: ESCITALOPRAM OXALATE (10 MG) 10 MG TABLET PO SCH (08:25)
[2020-10-29] MEDS: Z GUARD REMEDY 2 OZ OINT TP SCH (08:26)
--- NOTE | 2020-10-29 11:05 | NUR ---
SNF Referral SW faxed clinicals to [facility] ([phone]) for review.
[2020-10-29] MEDS: clonazePAM 0.5 MG TABLET PO PRN (12:10)
--- NOTE | 2020-10-29 12:12 | NUR ---
RN NOTES PT VERBALIZED THAT SHE'S ANXIOUS AND PANICKY, SHE REQUESTED MEDICATION TO CALM HER DOWN. PRN KLONOPIN 0.5MG TAB GIVEN AT 1210. WILL CONTINUE TO MONITOR.
[2020-10-29 16:00] VITALS: BP 134/78
[2020-10-29 20:00] VITALS: BP 128/63
[2020-10-29] MEDS: TRAZODONE 50 MG TABLET PO SCH (22:11)
[2020-10-29] MEDS: MIRTAZAPINE 15 MG TABLET PO SCH (22:11)
[2020-10-29] MEDS: ATORVASTATIN 10 MG TABLET PO SCH (22:11)
--- NOTE | 2020-10-29 22:14 | NUR ---
GPS RN NOTES: TRAZODONE 25MG PARTAL DOSE WASTED PER ORDER.
[2020-10-29] MEDS: TEMAZEPAM 7.5 MG CAPSULE PO PRN (23:22)
--- NOTE | 2020-10-29 23:24 | NUR ---
GPS RN NOTES: PATIENT REQUESTED FOR SLEEP MEDICATION D/T INSOMNIA. RESTORIL 7.5MG/1CAP GIVEN PO AT 2322. WILL CONTINUE TO MONITOR.
[2020-10-29] MEDS: ACETAMINOPHEN 325 MG TABLET PO PRN (23:48)
[2020-10-30 08:00] VITALS: BP 117/68
[2020-10-30 08:22] VITALS: BP 117/68
[2020-10-30] MEDS: LOSARTAN POTASSIUM 25 MG TABLET PO SCH (08:22)
[2020-10-30] MEDS: ARIPIPRAZOLE 2 MG TABLET PO SCH (08:23)
[2020-10-30] MEDS: ESCITALOPRAM OXALATE (10 MG) 10 MG TABLET PO SCH (08:23)
[2020-10-30] MEDS: Z GUARD REMEDY 2 OZ OINT TP SCH (08:23)
--- NOTE | 2020-10-30 09:30 | NUR ---
gps clinical applications manager: psych f/u dr. christine here and aware pt for d'c to snf this afternoon. order received by naun.
--- NOTE | 2020-10-30 09:41 | NUR ---
Dr. Palencia gave an order to D/C hold and D/C to [facility], to continue same meds including prn and to follow up with psych and medical doctors. Dr. Cuenca made aware of the discharge and reconciled the meds.
--- NOTE | 2020-10-30 10:00 | NUR ---
gps plate stacker: notes daughter aware of d'c to snf this afternoon per social services.
--- NOTE | 2020-10-30 10:25 | NUR ---
gps academy director: notes report given to sonny humphreys) from [facility] for continuity of care. eta at 1300. pt aware.
[2020-10-30] MEDS: clonazePAM 0.5 MG TABLET PO PRN (10:28)
--- NOTE | 2020-10-30 10:30 | NUR ---
gps lens molder: notes pt stable for discharge to snf. denies si/hi and denied auditory/visual hallucinations. no distress noted. will continue to monitor.
--- NOTE | 2020-10-30 12:20 | NUR ---
gps stencil maker: notes [facility] ambulance driver here to draft roller picker the pt. cn and s.w. made aware. ambulance transportation cancelled. pt stable for discharge. denies si/hi and denied auditory/visual hallucinations. all valuables returned to pt. pt unable to sign all discharge papers due to cognitive impairment. 2 licensed signed all d'c papers.
--- NOTE | 2020-10-30 12:30 | NUR ---
gps destination specialist: notes discharge pt in stable condition accompanied by the truck driver instructor with valuables.
--- NOTE | 2020-10-30 13:05 | NUR ---
D/C Note: Pt. was discharged to [facility] located at [address] [place] [address]; ([phone]). Pt will be provided transportation from the facility at at 12 pM. Pts daughter, Arianna ([phone]) was informed and made aware of this discharge. Upon discharge, the pt. appeared to be in an anxious mood and presented with a distressed affect. Pt. was alert & oriented x3. Pt. denied both suicidal and homicidal ideation as well as auditory and visual hallucinations. Pt. will be under the care of psychiatrist, Dr. Yani Bell located at [address] [place] [address]; and warehouse traffic supervisor, Dr. Flores, located at [address], [place] [address]; . Pt signed the Choice of Vendor.
== END 2020-10-30 12:30 | DRG 885 ==
LOC: GPS 23:17
PROVIDERS: ADMIT Psychiatry & Neurology Psychiatry; ATTEND Internal Medicine
DX: F33.3 Major depressive disorder, recurrent, severe with psychotic symptoms (principal); R45.851 Suicidal ideations; F23 Brief psychotic disorder; F41.1 Generalized anxiety disorder; E78.5 Hyperlipidemia, unspecified; I10 Essential (primary) hypertension; Z20.822 Contact with and (suspected) exposure to COVID-19; Z73.6 Limitation of activities due to disability
CPT/HCPCS: 36415; 80048-TC; 80053-TC; 80061-TC; 82962-TC; 87081-TC

== ENCOUNTER 2021-12-10 11:38 | Inpatient (IN) | payer MEDICARE, BC ==
[~2021-12-10] VITALS: Ht 157.5 cm; Wt 65.8 kg
[~2021-12-10 11:38] MED LIST changes: +ATOR20TA PO; +LOSA25TA3 PO
[2021-12-10] MEDS ORDERED: MORPHINE SULFATE INJ 2 MG/ML DISP.SYRIN IV ONE (12:00)
[2021-12-10] MEDS ORDERED: ONDANSETRON HCL/PF 4 MG/2 ML VIAL IVP ONE (12:00)
[2021-12-10] MEDS ORDERED: ONDANSETRON HCL/PF 4 MG/2 ML VIAL ONE (12:01)
[2021-12-10] MEDS ORDERED: MORPHINE SULFATE INJ 4 MG/ML DISP.SYRIN ONE (12:01)
[2021-12-10 12:28] LABS: BASOPHILS % (AUTO) 0.2 % (0.0-2.0); EOSINOPHILS % (AUTO) 0.2 % (0.0-6.0); HEMATOCRIT 39 % (33-45); HEMOGLOBIN 13.2 g/dL (11.5-14.8); LYMPHOCYTES # (AUTO) 0.9 K/uL (0.8-4.8); LYMPHOCYTES % (AUTO) 7.2 % (20.0-44.0); MEAN CORPUSCULAR HGB CONC 34 g/dl (31.0-36.0); MEAN CORPUSCULAR VOLUME 90 fL (82-100); MONOCYTES # (AUTO) 0.7 K/uL (0.1-1.30); NEUTROPHILS # (AUTO) 10.8 K/uL (1.8-8.9); NEUTROPHILS % (AUTO) 86.4 % (43.0-81.0); PLATELET COUNT (AUTO) 199 K/uL (150-450); RED BLOOD CELL COUNT(AUTO) 4.37 MIL/uL (4.0-5.2); WHITE BLOOD COUNT (AUTO) 12.5 K/uL (4.3-11.0)
[2021-12-10 12:38] LABS: CALCIUM, SERUM 8.7 mg/dL (8.5-10.1); POTASSIUM 4.1 mmol/L (3.5-5.1)
--- NOTE | 2021-12-10 13:26 | NUR ---
DR YANEZ TALKING TO THE PATIENT
--- NOTE | 2021-12-10 13:29 | NUR ---
PEDIATRIC ANESTHESIOLOGIST AT BEDSIDE FOR XRAY
[2021-12-10] MEDS ORDERED: DOCU-141 PO (13:43)
[2021-12-10] MEDS ORDERED: SERT50TA PO (13:43)
[2021-12-10] MEDS ORDERED: SENN-175 PO (13:43)
[2021-12-10] MEDS ORDERED: DIVA500T2 PO (13:43)
[2021-12-10] MEDS ORDERED: BISA10SU11 RC (13:43)
[2021-12-10] MEDS ORDERED: TRAM50TA PO (13:43)
[2021-12-10] MEDS ORDERED: NA P133E RC (13:43)
[2021-12-10] MEDS ORDERED: ACET325T53 PO (13:43)
[2021-12-10] MEDS ORDERED: MAGN400O6 PO (13:43)
--- NOTE | 2021-12-10 13:45 | NUR ---
COVID SWAB DONE AND SENT TO LAB
--- NOTE | 2021-12-10 13:49 | NUR ---
MOVE SHEET SUBMITTED.
[2021-12-10] MEDS ORDERED: BISACODYL SUPP (10 MG) 10 MG/SUPP.RECT SUPP.RECT RC PRN (14:00)
[2021-12-10] MEDS ORDERED: MAGNESIUM HYDROXIDE 30 ML UDC PO PRN ×2 (14:00)
[2021-12-10] MEDS ORDERED: ONDANSETRON HCL/PF 4 MG/2 ML VIAL IVP PRN (14:00)
[2021-12-10] MEDS ORDERED: ACETAMINOPHEN 325 MG TABLET PO PRN (14:00)
[2021-12-10] MEDS ORDERED: Z GUARD REMEDY 4 OZ OINT TP PRN (14:00)
[2021-12-10] MEDS ORDERED: NA PHOS,M-B/NA PHOS,DI-BA 1 EA ENEMA RC PRN (14:00)
[2021-12-10] MEDS ORDERED: MAG HYDROX/AL HYDROX/SIMETH 30 ML UDC PO PRN (14:00)
[2021-12-10] MEDS ORDERED: HYDROCODONE/APAP 10/325MG TABLET PO PRN (14:00)
[2021-12-10] MEDS ORDERED: HYDROMORPHONE 1 MG/1 ML DISP.SYRIN ONE (14:40)
--- NOTE | 2021-12-10 14:40 | NUR ---
TAKEN TO CT VIA KER[facility]
[2021-12-10] MEDS ORDERED: HYDROMORPHONE 1 MG/1 ML DISP.SYRIN IV ONE (15:00)
--- NOTE | 2021-12-10 15:35 | NUR ---
GOT BED 108
--- NOTE | 2021-12-10 17:10 | NUR ---
REPORT GIVEN TO KEVEN SR FOR CARLOS
--- NOTE | 2021-12-10 17:45 | NUR ---
RN NOTES: PT CAME FROM ER WITH RIGHT HIP PAIN WITH DX OF RIGHT FEMORAL NECK FX, ALERT AND ORIENTED X 2-3, ON ROOM AIR O2 SAT 98%, REFUSED BODY CHECK COMPLAINING OF SEVERE PAIN.WITH OH CATHETER CONNECTED TO DRAINAGE BAG VIA GRAVITY. BED KEPT IN LOW AND LOCKED POSITION, CALL LIGHT WITHIN REACH, SIDE RAILS X 3 UP WILL MONITOR
[2021-12-10] MEDS: DOCUSATE SODIUM 100 MG CAPSULE PO SCH (17:58)
[2021-12-10] MEDS: MORPHINE SULFATE INJ 2 MG/ML DISP.SYRIN IV PRN (17:59)
[2021-12-10] MEDS ORDERED: ENOXAPARIN SODIUM 40 MG/0.4 ML DISP.SYRIN SQ SCH (18:00)
--- NOTE | 2021-12-10 18:00 | NUR ---
RN NOTES: PT C/P OF PAIN 09/22 AT RIGHT HIP MORPHINE GIVEN IV ORDERED
--- NOTE | 2021-12-10 18:35 | NUR ---
RN NOTES: CALLED THE DAUGHTER MADE AWARE THAT PT HAS HIP FRACTURE CONSENTED FOR HIP SURGERY SAYING SHE WILL COME TOMORROW TO SEE HER
--- NOTE | 2021-12-10 19:19 | NUR ---
RN CLOSING NOTES: PT IN BED AWAKE, ASKED AGAIN TO DO BODY CHECK SHE REFUSED, RESPIRATION IS REGULAR EVEN AND EVEN ON ROOM AIR. REPORT GIVEN TO NIGHT REMBERTO SOLIS FOR CARLOS
--- NOTE | 2021-12-10 19:20 | NUR ---
RN NOTES RECEIVED REPORT FROM MORNING RN. PATIENT IN BED A/O X3 ABLE TO MAKE NEEDS KNOWN. WITH IV ACCESS AT R HAND #22 PATENT FLUSHES WELL. WITH OH CONNECTED TO URINE BAG NO URINE OUTPUT NOTED. ALL SAFETY MEASURES IN PLACE. HOB ELEVATED. CALL LIGHT WITHIN REACH. WILL CLOSELY MONITOR THE PATIENT
[2021-12-10] MEDS: ATORVASTATIN 10 MG TABLET PO SCH (21:49)
[2021-12-10] MEDS: SENNOSIDES 8.6 MG TABLET PO SCH (21:49)
[2021-12-10] MEDS: DIVALPROEX SODIUM 125 MG TABLET.DR PO SCH (21:49)
[2021-12-10] MEDS: IV D5/ 0.9% NACL 1,000 ML IV SCH (21:54)
[2021-12-10] MEDS: HYDROCODONE/APAP 5/325MG TABLET PO PRN (23:51)
[2021-12-11] VITALS: BP 115/67
[2021-12-11] MEDS: MORPHINE SULFATE INJ 2 MG/ML DISP.SYRIN IV PRN (04:29)
[2021-12-11 06:35] LABS: BASOPHILS % (AUTO) 0.3 % (0.0-2.0); EOSINOPHILS % (AUTO) 1.9 % (0.0-6.0); HEMATOCRIT 35 % (33-45); LYMPHOCYTES % (AUTO) 14.9 % (20.0-44.0); MEAN CORPUSCULAR HGB CONC 34 g/dl (31.0-36.0); MEAN CORPUSCULAR VOLUME 92 fL (82-100); MONOCYTES # (AUTO) 0.6 K/uL (0.1-1.30); MONOCYTES % (AUTO) 9.2 % (2.0-12.0); NEUTROPHILS # (AUTO) 4.7 K/uL (1.8-8.9); NEUTROPHILS % (AUTO) 73.7 % (43.0-81.0); PLATELET COUNT (AUTO) 169 K/uL (150-450); RED BLOOD CELL COUNT(AUTO) 3.85 MIL/uL (4.0-5.2); WHITE BLOOD COUNT (AUTO) 6.4 K/uL (4.3-11.0)
[2021-12-11 06:46] LABS: BILIRUBIN,URINE NEGATIVE (NEGATIVE); COLOR,URINE YELLOW (YELLOW); LEUKOCYTE ESTERASE ,URINE NEGATIVE (NEGATIVE); NITRITE, URINE NEGATIVE (NEGATIVE); PROTEIN,URINE NEGATIVE (NEGATIVE); UGLUCOSE NEGATIVE (NEGATIVE); UROBILINOGEN,URINE 0.2 EU/dL (0.2)
[2021-12-11 07:04] LABS: CALCIUM, SERUM 8.5 mg/dL (8.5-10.1); CREATININE 1.1 mg/dL (0.6-1.3); MAGNESIUM 2.2 mg/dL (1.8-2.4); PHOSPHORUS 4.1 mg/dL (2.5-4.9); POTASSIUM 4.8 mmol/L (3.5-5.1)
[2021-12-11] MEDS: PANTOPRAZOLE 40 MG TABLET.DR PO SCH (07:30)
--- NOTE | 2021-12-11 08:01 | NUR ---
RN OPENING NOTE PATIENT IN BED, SUPINE POSITION.PT IS ALERT AND ORIENTED X3. PT VERBALLY RESPONSIVE. PT HAS IV ACCESS ON R HAND 22 GUAGE. PATENT FLUSHES WELL. PT HAS OH CATHETHER WITH YELLOW/RENUKA URINE OUTPUT NOTED. ALL SAFETY MEASURES IN PLACE.. CALL LIGHT WITHIN REACH. BED LOCKED AT LOWEST POSITION.SIDE RAILS UP X2.
--- NOTE | 2021-12-11 08:02 | NUR ---
RN NOTE PT REPORTS HAVING DOUBTS ABOUT SURGERY. CALLED PT DAUGHTER TO NOTIIFY THAT PT IS HAVING DOUBTS ABOUT SURGEY. PT DAUGHTER SAID SURGERY NECESSARY AND DAUGHTER GAVE CONSENT FOR SURGERY. DAUGHTER ASKED TO UPDATE HER BEFORE AND AFTER SURGERY.
--- NOTE | 2021-12-11 08:23 | NUR ---
rn note rn note received call from pt mariano Keller regarding questions on surgery. notified dr. granado of this concern. said that he would call doctor
--- NOTE | 2021-12-11 08:23 | NUR ---
rn note received call from pt daughter Arianna regarding questions on surgery. notified dr. granado of this concern. said that he would call Arianna daughter
[2021-12-11] MEDS ORDERED: BUPIVACAINE 0.25% 75 MG/30 ML VIAL ONE (08:30)
[2021-12-11 08:32] VITALS: BP 124/65
[2021-12-11] MEDS ORDERED: ANESTHESIA TRAY IN PYXIS 1 EA TRAY MC ONE (08:39)
[2021-12-11] MEDS: DIVALPROEX SODIUM 125 MG TABLET.DR PO SCH ×2 (09:00→21:56)
[2021-12-11] MEDS: DOCUSATE SODIUM 100 MG CAPSULE PO SCH ×4 (09:00→17:00)
[2021-12-11] MEDS: LOSARTAN POTASSIUM 25 MG TABLET PO SCH (09:00)
[2021-12-11] MEDS: SERTRALINE HCL 50 MG TABLET PO SCH (09:00)
[2021-12-11] MEDS ORDERED: HYDROMORPHONE INJ 2 MG/ML DISP.SYRIN ONE (09:04)
--- NOTE | 2021-12-11 09:30 | NUR ---
rn note made surgery team aware of pt having doubts of surgery. said to bring patient up and surgery team will speak with md granado and call daughter
[2021-12-11 12:00] VITALS: BP 137/73
--- NOTE | 2021-12-11 12:00 | NUR ---
rn note pt returned from surgery. received report from surgery team. pt complains of no pain. stable vital signs. able to resume all orders per md and surgical team.
--- NOTE | 2021-12-11 12:30 | NUR ---
rn note updated patient daughter mariela post surgery
--- NOTE | 2021-12-11 12:44 | NUR ---
rn note pt has pooor appetite notified dr. resendez said okay to order ensure
--- NOTE | 2021-12-11 13:57 | NUR ---
rn note notified that patient urine output is ethan colored. said to give 500 normal saline bolus
[2021-12-11 16:00] VITALS: BP 135/74
[2021-12-11] MEDS: ANCEF 1 GM/50 ML D5W IV SCH ×2 (16:05)
[2021-12-11] MEDS: ENSURE ENLIVE 237 ML LIQUID (VANILLA) PO SCH (17:00)
[2021-12-11] MEDS ORDERED: ENOXAPARIN SODIUM 40 MG/0.4 ML DISP.SYRIN SQ SCH (17:00)
[2021-12-11] MEDS: IV D5/ 0.9% NACL 1,000 ML IV SCH (17:24)
[2021-12-11] MEDS: ENOXAPARIN SODIUM 30 MG/0.3 ML DISP.SYRIN SQ SCH (17:42)
--- NOTE | 2021-12-11 18:42 | NUR ---
rn note asked patient multiple times throughout shift.pt doesnt complain of pain
--- NOTE | 2021-12-11 18:51 | NUR ---
RN CLOSING NOTE PT IN BED, SEMIFOWLERS POSITION.PT IS ALERT AND ORIENTED X3. PT HAS PERIODS OF FORGETFULNESS. PT VERBALLY RESPONSIVE. PT DOES NOT COMPLAIN OF PAIN OR DISCOMFORT. PT HAS SCAR ON RIGHT HIP POST SURGERY. KEPT DRESSING CLEAN,DRY AND INTACT. PT HAS IV ACCESS ON R HAND 22 GAUGE. PATENT FLUSHES WELL. PT HAS OH CATHETER WITH YELLOW/RENUKA URINE OUTPUT NOTED. ALL SAFETY MEASURES IN PLACE.. CALL LIGHT WITHIN REACH. BED LOCKED AT LOWEST POSITION.SIDE RAILS UP X2.BEDSIDE TABLE NEXT TO PT
--- NOTE | 2021-12-11 19:44 | NUR ---
RN OPENING NOTES RECEIVED PT IN BED AWAKE, WATCHING TV. AOx2-3, ABLE TO MAKE NEEDS KNOWN. ON NC 2LPM AND TOLERATING WELL. NO SOB NOTED. NO S/SX OF RESPIRATORY DISTRESS NOTED. IV ACCESS IN R HAND #22G RUNNING D51/2 NS # 50 ML/HR. IV IS INTACT, PATENT, AND FLUSHING WELL. SAFETY PRECAUTIONS IN PLACE: BED IN LOWEST, LOCKED POSITION, SIDERAILS UPx2, AND BRAKES ON. TABLE AND CALL LIGHT WITHIN REACH. ALL NEEDS MET AT THIS TIME.
[2021-12-11 20:00] VITALS: BP 147/73
[2021-12-11] MEDS: HYDROCODONE/APAP 5/325MG TABLET PO PRN (21:56)
[2021-12-11] MEDS: ATORVASTATIN 10 MG TABLET PO SCH (21:56)
[2021-12-11] MEDS: SENNOSIDES 8.6 MG TABLET PO SCH (21:57)
--- NOTE | 2021-12-11 21:57 | NUR ---
RN NOTES ADMINISTERED NORCO FOR PAIN PER MD ORDER. VS WNL.
[2021-12-12] MEDS: ANCEF 1 GM/50 ML D5W IV SCH ×4 (01:02→08:27)
--- NOTE | 2021-12-12 02:30 | NUR ---
RN NOTES ADMINISTERED NORCO FOR PAIN PER MD ORDER. VS WNL.
--- NOTE | 2021-12-12 06:36 | NUR ---
RN CLOSING NOTES PT IN BED ASLEEP, AWAKENS TO VERBAL STIMULI. AOx3, ABLE TO MAKE NEEDS KNOWN. ON NC 2LPM AND TOLERATING WELL. NO SOB NOTED. NO S/SX OF RESPIRATORY DISTRESS NOTED. IV ACCESS IN R HAND #22G RUNNING D51/2 NS # 50 ML/HR. ALL ORDERS CARRIED OUT. ALL NEEDS MET. PT KEPT CLEAN AND DRY. SAFETY PRECAUTIONS IN PLACE: BED IN LOWEST, LOCKED POSITION, SIDERAILS UPx2, AND BRAKES ON. TABLE AND CALL LIGHT WITHIN REACH. WILL ENDORSE TO ONCOMING SHIFT FOR CARLOS.
--- NOTE | 2021-12-12 07:53 | NUR ---
RN OPENING NOTE PATIENT RECEIVED IN BED, AO X 2-3, FORGETFUL AND ANXIOUS, ABLE TO RESPONDS ALL STIMULI. IN NO ACUTE DISTRESS NOTED. RESPIRATORY EVEN AND UNLABORED ON OXYGEN AT 2Ls VIA NC. SKIN IS WARM TO TOUCH, KEEP CLEAN/DRY. KEPT ELEVATED HOB FOR ENSURE AIRWAY AND ASPIRATION PRECAUTION, ALSO LOWEST POSITION OF THE BED, S/R UP X 3, BED ALARM IS ON AT ALL THE TIMES. ALL SAFETY PRECAUTION APPLIED. CALL LIGHT WITHIN REACH, WILL CONTINUE TO MONITOR.
[2021-12-12 08:00] VITALS: BP 152/70
[2021-12-12] MEDS: SERTRALINE HCL 50 MG TABLET PO SCH (08:20)
[2021-12-12] MEDS: HYDROCODONE/APAP 5/325MG TABLET PO PRN (08:20)
[2021-12-12] MEDS: LOSARTAN POTASSIUM 25 MG TABLET PO SCH (08:21)
[2021-12-12] MEDS: PANTOPRAZOLE 40 MG TABLET.DR PO SCH (08:21)
[2021-12-12] MEDS: DIVALPROEX SODIUM 125 MG TABLET.DR PO SCH ×2 (08:21→21:21)
[2021-12-12 08:36] LABS: BASOPHILS % (AUTO) 0.4 % (0.0-2.0); EOSINOPHILS % (AUTO) 3.6 % (0.0-6.0); HEMATOCRIT 33 % (33-45); HEMOGLOBIN 10.9 g/dL (11.5-14.8); LYMPHOCYTES # (AUTO) 0.7 K/uL (0.8-4.8); LYMPHOCYTES % (AUTO) 13.2 % (20.0-44.0); MEAN CORPUSCULAR HGB CONC 33 g/dl (31.0-36.0); MEAN CORPUSCULAR VOLUME 93 fL (82-100); MONOCYTES # (AUTO) 0.7 K/uL (0.1-1.30); MONOCYTES % (AUTO) 12.3 % (2.0-12.0); NEUTROPHILS % (AUTO) 70.5 % (43.0-81.0); PLATELET COUNT (AUTO) 137 K/uL (150-450); RED BLOOD CELL COUNT(AUTO) 3.52 MIL/uL (4.0-5.2); WHITE BLOOD COUNT (AUTO) 5.6 K/uL (4.3-11.0)
[2021-12-12 09:09] LABS: ALBUMIN 2.6 g/dL (3.4-5.0); BILIRUBIN,TOTAL 1.2 mg/dL (0.2-1.0); CREATININE 0.9 mg/dL (0.6-1.3); MAGNESIUM 1.8 mg/dL (1.8-2.4); POTASSIUM 4.3 mmol/L (3.5-5.1); TOTAL PROTEIN, SERUM 5.4 g/dL (6.4-8.2)
[2021-12-12 09:27] LABS: PHOSPHORUS 2.6 mg/dL (2.5-4.9)
[2021-12-12] MEDS: ENSURE ENLIVE 237 ML LIQUID (VANILLA) PO SCH ×2 (10:13→17:39)
[2021-12-12] MEDS ORDERED: HYDROCODONE/APAP 5/325MG TABLET PO PRN (14:00)
[2021-12-12] MEDS ORDERED: ACETAMINOPHEN 325 MG TABLET PO PRN (14:00)
[2021-12-12] MEDS: HYDROCODONE/APAP 10/325MG TABLET PO PRN ×2 (14:06→20:16)
--- NOTE | 2021-12-12 15:30 | NUR ---
PATIENT NOTICED GRIMACE FACIAL EXPRESSION, GIVEN TYLENOL. WILL CONTINUE TO MONITOR. Addendum: 12/12/21 at 1645 by MARS STEPHENS RN ERROR
[2021-12-12 16:00] VITALS: BP 128/79
[2021-12-12] MEDS: DOCUSATE SODIUM 100 MG CAPSULE PO SCH (17:00)
[2021-12-12] MEDS: ENOXAPARIN SODIUM 30 MG/0.3 ML DISP.SYRIN SQ SCH (17:38)
--- NOTE | 2021-12-12 18:00 | NUR ---
RN CLOSING NOTE PATIENT IN BED RESTING. IN NO ACUTE DISTRESS NOTED. RESPIRATORY EVEN AND UNLABORED ON ROOM AIR. SKIN IS WARM TO TOUCH, KEEP CLEAN/DRY. KEPT ELEVATED HOB FOR ENSURE AIRWAY AND ASPIRATION PRECAUTION. BED IN LOWEST POSITION AND LOCKED. BED ALARM IS ON AT ALL THE TIMES. ALL SAFETY MEASURED IN PLACED. CALL LIGHT WITHIN REACH, WILL ENDORSED TO NEXT SHIFT. Addendum: 12/12/21 at 1951 by MARS STEPHENS RN ERROR
--- NOTE | 2021-12-12 18:00 | NUR ---
RN CLOSING NOTE PATIENT IN BED RESTING. IN NO ACUTE DISTRESS NOTED. RESPIRATORY EVEN AND UNLABORED ON OXYGEN AT 2Ls VIA NC. SKIN IS WARM TO TOUCH, KEEP CLEAN/DRY. KEPT ELEVATED HOB FOR ENSURE AIRWAY AND ASPIRATION PRECAUTION. BED IN LOWEST POSITION AND LOCKED. BED ALARM IS ON AT ALL THE TIMES. ALL SAFETY MEASURED IN PLACED. CALL LIGHT WITHIN REACH, WILL ENDORSED TO NEXT SHIFT
--- NOTE | 2021-12-12 19:20 | NUR ---
RN OPENING NOTES RECEIVED PT IN BED AWAKE, A/OX2-3, EPISODES OF CONFUSION, ON 2L VIA NC, TOLERATING WELL, NO S/S OF ACUTE DISTRESS. ABLE TO MAKE NEEDS KNOWN.IV ACCESS IN R HAND #22G , INTACT AND PATENT, ALL SAFETY MEASURES IN PLACE, BED LOCKED IN LOWEST POSITION, CALL LIGHT WITHIN REACH. WILL CONTINUE TO MONITOR THROUGHOUT SHIFT.
[2021-12-12 20:00] VITALS: BP 131/83
[2021-12-12] MEDS ORDERED: TEMAZEPAM 15 MG CAPSULE PO PRN (20:00)
[2021-12-12] MEDS: SENNOSIDES 8.6 MG TABLET PO SCH (21:21)
[2021-12-13] MEDS: HYDROCODONE/APAP 10/325MG TABLET PO PRN (03:44)
[2021-12-13 04:00] VITALS: BP 137/76
--- NOTE | 2021-12-13 07:07 | NUR ---
RN CLOSING NOTES PT IN BED ASLEEP, A/OX2-3, EPISODES OF CONFUSION, ON 2L VIA NC, TOLERATING WELL, NO S/S OF ACUTE DISTRESS. ABLE TO MAKE NEEDS KNOWN.IV ACCESS IN R HAND #22G , INTACT AND PATENT, ALL DUE MEDS GIVEN.ALL SAFETY MEASURES IN PLACE, BED LOCKED IN LOWEST POSITION, CALL LIGHT WITHIN REACH. WILL ENDORSE TO MORNING SHIFT FOR CARLOS
[2021-12-13 07:43] LABS: BASOPHILS % (AUTO) 0.5 % (0.0-2.0); EOSINOPHILS % (AUTO) 5.7 % (0.0-6.0); HEMATOCRIT 31 % (33-45); HEMOGLOBIN 10.7 g/dL (11.5-14.8); LYMPHOCYTES % (AUTO) 16.1 % (20.0-44.0); MEAN CORPUSCULAR HGB CONC 35 g/dl (31.0-36.0); MEAN CORPUSCULAR VOLUME 92 fL (82-100); MONOCYTES # (AUTO) 0.8 K/uL (0.1-1.30); MONOCYTES % (AUTO) 12.5 % (2.0-12.0); NEUTROPHILS % (AUTO) 65.2 % (43.0-81.0); PLATELET COUNT (AUTO) 149 K/uL (150-450); RED BLOOD CELL COUNT(AUTO) 3.36 MIL/uL (4.0-5.2); WHITE BLOOD COUNT (AUTO) 6.1 K/uL (4.3-11.0)
[2021-12-13] MEDS: PANTOPRAZOLE 40 MG TABLET.DR PO SCH (07:54)
[2021-12-13 08:06] LABS: ALBUMIN 2.5 g/dL (3.4-5.0); BILIRUBIN,TOTAL 0.9 mg/dL (0.2-1.0); CALCIUM, SERUM 8.4 mg/dL (8.5-10.1); CREATININE 0.9 mg/dL (0.6-1.3); PHOSPHORUS 3.4 mg/dL (2.5-4.9); POTASSIUM 4.3 mmol/L (3.5-5.1); TOTAL PROTEIN, SERUM 5.5 g/dL (6.4-8.2)
[2021-12-13] MEDS: SERTRALINE HCL 50 MG TABLET PO SCH (09:00)
[2021-12-13] MEDS: LOSARTAN POTASSIUM 25 MG TABLET PO SCH (09:00)
[2021-12-13] MEDS: ENSURE ENLIVE 237 ML LIQUID (VANILLA) PO SCH (09:01)
[2021-12-13] MEDS: DOCUSATE SODIUM 100 MG CAPSULE PO SCH ×2 (09:01→17:39)
[2021-12-13] MEDS: DIVALPROEX SODIUM 125 MG TABLET.DR PO SCH ×2 (09:01→21:02)
[2021-12-13] MEDS: MORPHINE SULFATE INJ 2 MG/ML DISP.SYRIN IV PRN ×2 (13:29→22:40)
[2021-12-13 16:00] VITALS: BP 130/71
[2021-12-13] MEDS: ENSURE CLEAR 237 ML LIQUID (MIX BERRY) PO SCH (17:32)
[2021-12-13] MEDS: ENOXAPARIN SODIUM 30 MG/0.3 ML DISP.SYRIN SQ SCH (17:41)
--- NOTE | 2021-12-13 19:00 | NUR ---
RN CLOSING NOTE PATIENT IN BED RESTING. IN NO ACUTE DISTRESS NOTED, PATIENT HAD PAIN AT 1330 2 MG MORPHINE IV PUSH ADMINISTERED PAIN RATED BY PATIENT 8/10 AND MORPHINE WAS EFFECTIVE WHEN PATIENT WAS ASSESSED. RESPIRATORY EVEN AND UNLABORED ON OXYGEN AT 2Ls VIA NC. SKIN IS WARM TO TOUCH, KEEP CLEAN/DRY. KEPT ELEVATED HOB FOR ENSURE AIRWAY AND ASPIRATION PRECAUTION. BED IN LOWEST POSITION AND LOCKED. BED ALARM IS ON AT ALL THE TIMES. ALL SAFETY MEASURED IN PLACED. CALL LIGHT WITHIN REACH, WILL ENDORSED TO AUTOMATION TESTER FOR CARLOS.
[2021-12-13 20:00] VITALS: BP 155/82
[2021-12-13] MEDS: SENNOSIDES 8.6 MG TABLET PO SCH (21:02)
[2021-12-14 04:00] VITALS: BP 143/63
--- NOTE | 2021-12-14 07:02 | NUR ---
RN CLOSING NOTES PT IN BED AWAKE, A/OX2-3, EPISODES OF CONFUSION, ON 2L VIA NC, TOLERATING WELL, NO S/S OF ACUTE DISTRESS. ABLE TO MAKE NEEDS KNOWN.IV ACCESS IN R HAND #22G , INTACT AND PATENT.ALL DUE MEDS GIVEN. ALL SAFETY MEASURES IN PLACE, BED LOCKED IN LOWEST POSITION, CALL LIGHT WITHIN REACH. WILL ENDORSE TO MORNING NURSE FOR CARLOS.
[2021-12-14] MEDS: ENSURE CLEAR 237 ML LIQUID (MIX BERRY) PO SCH ×2 (08:00→12:39)
[2021-12-14 08:15] VITALS: BP 154/89
[2021-12-14] MEDS: DIVALPROEX SODIUM 125 MG TABLET.DR PO SCH (08:15)
[2021-12-14] MEDS: DOCUSATE SODIUM 100 MG CAPSULE PO SCH (08:15)
[2021-12-14] MEDS: LOSARTAN POTASSIUM 25 MG TABLET PO SCH (08:15)
[2021-12-14] MEDS: PANTOPRAZOLE 40 MG TABLET.DR PO SCH (08:15)
[2021-12-14] MEDS: SERTRALINE HCL 50 MG TABLET PO SCH (08:16)
[2021-12-14] MEDS: MORPHINE SULFATE INJ 2 MG/ML DISP.SYRIN IV PRN (09:17)
--- NOTE | 2021-12-14 12:39 | NUR ---
RN NOTE SPOKE WITH REMBERTO SOLITARIO FOR REPORT AND CARLOS. PT LEFT VIA AMBULANCE, IN GOOD CONDITION. IV ACCESS DC BY CN. VITALS STABLE.
== END 2021-12-14 17:37 | DRG 481 ==
LOC: ER 11:41 → MEDSG1 17:11
PROC: 0QS634Z Reposition Right Upper Femur with Internal Fixation Device, Percutaneous Approach (ICD-10-PCS; principal; 2021-12-11)
DX: S72.034A Nondisplaced midcervical fracture of right femur, initial encounter for closed fracture (principal); E87.1 Hypo-osmolality and hyponatremia; F03.94 Unspecified dementia, unspecified severity, with anxiety; W18.30XA Fall on same level, unspecified, initial encounter; Z20.822 Contact with and (suspected) exposure to COVID-19; E78.5 Hyperlipidemia, unspecified; D25.9 Leiomyoma of uterus, unspecified; N18.9 Chronic kidney disease, unspecified; I12.9 Hypertensive chronic kidney disease with stage 1 through stage 4 chronic kidney disease, or unspecified chronic kidney disease; Y92.009 Unspecified place in unspecified non-institutional (private) residence as the place of occurrence of the external cause; F25.9 Schizoaffective disorder, unspecified; F41.0 Panic disorder [episodic paroxysmal anxiety]; Z88.8 Allergy status to other drugs, medicaments and biological substances; Z79.899 Other long term (current) drug therapy; R74.01 Elevation of levels of liver transaminase levels
CPT/HCPCS: 36415; 71045-TC; 73501; 73502; 73552; 73700-TC; 76700-TC; 80048-TC; 80053-TC; 82140-TC; 82550-TC; 83735-TC; 84100-TC; 85025-TC; 85730-TC; 87081-TC; 93307-TC; 93971-TC; 94799-TC; 97110-TC; 97112-TC; 97530-TC; A6209; A6253; C1713; C1769; C9803; G0378; J0690; J1100; J1170; J1650; J1885; J2270; J2405; J2704; J3490; J7030; J7040; J7042; J7050; J7060; J7070